=== PATIENT | male | born 1990 | race African-American/Black ===

== ENCOUNTER 2016-11-02 06:54 | Emergency (ER) | payer OTHER ==
[~2016-11-02] VITALS: Ht 195.6 cm; Wt 118.0 kg
[2016-11-02] MEDS ORDERED: METOCLOPRAMIDE HCL 10MG/2ML VIAL IV ONE (10:15)
[2016-11-02] MEDS ORDERED: SODIUM CHLORIDE 0.9% 1,000 ML IV ONE (10:15)
[2016-11-02] MEDS ORDERED: KETOROLAC 30MG/ML VIAL IV ONE (10:15)
[2016-11-02 11:34] VITALS: BP 118/71
== END 2016-11-02 12:01 | disposition home or self-care (01) ==
LOC: ER 10:00
DX: G44.89 Other headache syndrome (principal)
CPT/HCPCS: 96361; 96374; 96375; 99284; J1885; J2765; J7030; Z7610

== ENCOUNTER 2016-11-19 20:54 | Emergency (ER) | payer MEDICAID, OTHER ==
[~2016-11-19] VITALS: Ht 195.6 cm; Wt 118.0 kg
[2016-11-20] MEDS ORDERED: KETOROLAC 60MG/2ML VIAL IM ONE
[2016-11-20 00:29] LABS: CLARITY URINE CLEAR (CLEAR); COLOR URINE YELLOW (YELLOW); GLUCOSE URINE NEGATIVE (NEGATIVE); KETONES URINE TRACE (NEGATIVE); LEUKOCYTE ESTERASE URINE NEGATIVE (NEGATIVE); NITRITE URINE NEGATIVE (NEGATIVE); OCCULT BLOOD URINE NEGATIVE (NEGATIVE); PH URINE 5.5 (4.5-8.0); PROTEIN URINE NEGATIVE (NEGATIVE); SPECIFIC GRAVITY URINE 1.026 (1.005-1.030)
[2016-11-20] MEDS ORDERED: LIDOCAINE HCL 1% 20ML VIAL (Pyxis) INJ INFIL ONE (00:45)
[2016-11-20] MEDS ORDERED: CEFTRIAXONE SODIUM 250 MG/VIAL IM ONE (00:45)
[2016-11-20 01:10] VITALS: BP 136/62
[2016-11-20] MEDS ORDERED: AZITHROMYCIN 500 MG TABLET PO SCH (02:19)
[2016-11-23 04:18] LABS: CHLAMYDIA TRACHOMATIS NAA Negative (Negative); NEISSERIA GONORRHOEAE NAA Negative (Negative)
== END 2016-11-20 06:48 | disposition home or self-care (01) ==
LOC: ER 20:54
DX: R39.198 Other difficulties with micturition (principal); G43.909 Migraine, unspecified, not intractable, without status migrainosus; Z98.890 Other specified postprocedural states
CPT/HCPCS: 81003; 87491; 87591; 96372; 99284; J0696; J1885; J3490

== ENCOUNTER 2016-11-20 15:01 | Emergency (ER) | payer MEDICAID, OTHER ==
[~2016-11-20] VITALS: Ht 195.6 cm; Wt 116.0 kg
[2016-11-20 16:48] LABS: CLARITY URINE CLEAR (CLEAR); COLOR URINE YELLOW (YELLOW); GLUCOSE URINE NEGATIVE (NEGATIVE); KETONES URINE NEGATIVE (NEGATIVE); LEUKOCYTE ESTERASE URINE NEGATIVE (NEGATIVE); NITRITE URINE NEGATIVE (NEGATIVE); OCCULT BLOOD URINE NEGATIVE (NEGATIVE); PROTEIN URINE NEGATIVE (NEGATIVE); SPECIFIC GRAVITY URINE 1.012 (1.005-1.030); UROBILINOGEN URINE 0.2 E.U./dL (0.2-1.0)
[2016-11-20 18:11] VITALS: BP 115/46
== END 2016-11-20 19:07 | disposition home or self-care (01) ==
LOC: ER 16:06
DX: R30.0 Dysuria (principal); G43.909 Migraine, unspecified, not intractable, without status migrainosus; F12.10 Cannabis abuse, uncomplicated
CPT/HCPCS: 81003; 99283

== ENCOUNTER 2016-12-04 12:45 | Emergency (ER) | payer MEDICAID, OTHER ==
[~2016-12-04] VITALS: Ht 195.6 cm; Wt 111.0 kg
[2016-12-04 15:19] VITALS: BP 157/66
== END 2016-12-04 15:20 | disposition home or self-care (01) ==
LOC: ER 14:57
DX: B35.4 Tinea corporis (principal); F12.10 Cannabis abuse, uncomplicated; G43.909 Migraine, unspecified, not intractable, without status migrainosus
CPT/HCPCS: 99282

== ENCOUNTER 2016-12-09 09:59 | Emergency (ER) | payer MEDICAID, OTHER ==
[~2016-12-09] VITALS: Ht 195.6 cm; Wt 113.0 kg
[2016-12-09 10:40] VITALS: BP 144/65
== END 2016-12-09 11:05 | disposition home or self-care (01) ==
LOC: ER 10:40
DX: N48.1 Balanitis (principal); B35.6 Tinea cruris; F12.10 Cannabis abuse, uncomplicated; G43.909 Migraine, unspecified, not intractable, without status migrainosus; Z98.890 Other specified postprocedural states
CPT/HCPCS: 99282

== ENCOUNTER 2017-06-02 08:45 | Emergency (ER) | payer OTHER ==
[~2017-06-02] VITALS: Ht 195.6 cm; Wt 111.0 kg
[2017-06-02] MEDS ORDERED: KETOROLAC 60MG/2ML VIAL IM ONE (10:30)
[2017-06-02 10:39] VITALS: BP 159/58
== END 2017-06-02 11:02 | disposition home or self-care (01) ==
LOC: ER 08:54
DX: M54.5 Low back pain (principal); X58.XXXA Exposure to other specified factors, initial encounter; Y93.64 Activity, baseball; Y92.89 Other specified places as the place of occurrence of the external cause; F12.90 Cannabis use, unspecified, uncomplicated; Z98.890 Other specified postprocedural states
CPT/HCPCS: 96372; 99283; J1885; Z7610